=== PATIENT | female | born 1995 | race Caucasian/White ===

== ENCOUNTER 2016-06-04 02:48 | Emergency (ER) | payer SELFPAY ==
[~2016-06-04] VITALS: Ht 160 cm; Wt 50.0 kg
[2016-06-04 02:59] VITALS: Ht 160 cm; Wt 50.0 kg
[2016-06-04 03:22] LABS: URINE BLOOD (Dip) POC 1+ (NEGATIVE)
[2016-06-04] MEDS ORDERED: SOD CHLORIDE 0.9% 1,000 ML IV STA (03:23)
[2016-06-04 03:36] LABS: ADD SCAN DIFF NO
[2016-06-04 03:40] LABS: BASOPHILS % 0.1 % (0.0-2.0); EOSINOPHILS # 0.1 10^3/ul (0.0-0.5); EOSINOPHILS % 0.7 % (0.0-7.0); HEMATOCRIT 40.4 % (37.0-47.0); HEMOGLOBIN 12.4 g/dl (12.0-16.0); LYMPHOCYTES # 2.5 10^3/ul (0.8-2.9); LYMPHOCYTES % 30.3 % (15.0-51.0); MEAN CORPUSCULAR HEMOGLOBIN 25.4 pg (29.0-33.0); MEAN CORPUSCULAR HGB CONC 30.7 g/dl (32.0-37.0); MEAN CORPUSCULAR VOLUME 82.6 fl (82.0-101.0); MEAN PLATELET VOLUME 9.3 fl (7.4-10.4); MONOCYTE # 0.5 10^3/ul (0.3-0.9); MONOCYTES % 6.5 % (0.0-11.0); PLATELET COUNT 481 10^3/UL (140-415); RED BLOOD COUNT 4.89 10^6/ul (4.20-5.40); RED CELL DISTRIBUTION WIDTH 14.4 % (11.5-14.5); WHITE BLOOD COUNT 8.1 10^3/ul (4.8-10.8)
[2016-06-04 04:19] LABS: CHLORIDE 108 mmol/L (97-110); SODIUM 148 mmol/L (135-144)
[2016-06-04 04:20] LABS: POTASSIUM 3.7 mmol/L (3.5-5.1)
[2016-06-04 04:21] LABS: INR 0.98; PARTIAL THROMBOPLASTIN TIME 30.1 Sec (25.0-35.0)
[2016-06-04 04:22] LABS: ANION GAP 20 (8-16); CARBON DIOXIDE 24 mmol/L (21-31); CREATININE 0.47 mg/dl (0.44-1.00)
[2016-06-04 04:23] LABS: BLOOD UREA NITROGEN 6 mg/dl (7-20); CALCIUM 9.8 mg/dl (8.4-10.2); GLUCOSE 103 mg/dl (70-220); MAGNESIUM 2.2 mg/dl (1.7-2.5)
[2016-06-04 04:35] LABS: TROPONIN-I < 0.012 ng/ml (0.00-0.12)
--- NOTE | 2016-06-04 04:41 | ERD ---
ER Documentation Chief Complaint Date/Time DATE: 06/04/16 TIME: 04:39 Chief Complaint PT C/O SOB for 4 days. Pt reports hx of heart problem but unsure what HPI This is a 20-year-old female who presents to the emergency room for evaluation of shortness of breath for the past 4 days. The patient states that she has an unknown heart problem, and today she states that she drank 3 beers and came to the ER because she was having an elevation in her heart rate. The patient states that she does not follow with a product developer. She denies any illicit drug use and came to the ER for evaluation. She is denying any actual chest pain but does state that she feels palpitations. ROS All systems reviewed and are negative except as per history of present illness. Medications Home Meds No Active Prescriptions or Reported Meds Allergies Allergies: Coded Allergies: No Known Allergy (Unverified , 01/14/14) PMhx/Soc Medical and Surgical Hx: pt denies Surgical Hx History of Surgery: No Anesthesia Reaction: No Hx Neurological Disorder: No Hx Respiratory Disorders: No Hx Cardiac Disorders: Yes (ARRHYTHMIA) Hx Psychiatric Problems: No Hx Miscellaneous Medical Probl: No Hx Alcohol Use: No Hx Substance Use: No Hx Tobacco Use: No Smoking Status: Never smoker Physical Exam Vitals Vital Signs Date Time Temp Pulse Resp B/P Pulse Ox O2 Delivery O2 Flow Rate FiO2 06/04/16 03:20 98.7 105 24 102/67 98 Room Air 06/04/16 02:59 98.7 137 24 167/64 97 Physical Exam INITIAL VITAL SIGNS: Reviewed by me GENERAL: The patient is well developed and appropriate for usual state of health in no apparent distress, smells of alcohol HEENT: Pupils equal, round, and reactive to light. EOMI. There is no scleral icterus. NECK: C-spine is soft and supple, there is no meningismus. There is no cervical lymphadenopathy. LUNGS: Clear to auscultation bilaterally. There are no rales, wheezes or rhonchi. HEART: Tachycardic, no murmurs, clicks, rubs or gallops. ABDOMEN: Soft, non-tender, non-distended. There are bowel sounds in all four quadrants. No rebound or guarding. EXTREMITIES: There is no peripheral cyanosis or edema. No focal swelling or erythema. NEUROLOGICAL: The patient moves all four extremities with 5/5 strength. Cranial nerves II - XII are intact. Normal gait. Alert and oriented SKIN: There is no apparent rash or petechiae. HEME/LYMPHATIC: There is no evidence of excessive bruising or lymphedema. PSYCHIATRIC: The patient does not appear anxious or depressed. Result Diagram: 06/04/16 0330 06/04/16 0330 Results 24 hrs Laboratory Tests Test 06/04/16 03:22 06/04/16 03:30 Bedside Urine pH (LAB) 6.5 Bedside Urine Protein (LAB) Negative Bedside Urine Glucose (UA) Negative Bedside Urine Ketones (LAB) Negative Bedside Urine Blood 1+ Bedside Urine Nitrite (LAB) Negative Bedside Urine Leukocyte Esterase (L Negative White Blood Count 8.110^3/ul Red Blood Count 4.8910^6/ul Hemoglobin 12.4g/dl Hematocrit 40.4% Mean Corpuscular Volume 82.6fl Mean Corpuscular Hemoglobin 25.4pg Mean Corpuscular Hemoglobin Concent 30.7g/dl Red Cell Distribution Width 14.4% Platelet Count 38092^3/UL Mean Platelet Volume 9.3fl Neutrophils % 62.0% Lymphocytes % 30.3% Monocytes % 6.5% Eosinophils % 0.7% Basophils % 0.1% Nucleated Red Blood Cells % 0.0/100WBC Neutrophils # 5.010^3/ul Lymphocytes # 2.510^3/ul Monocytes # 0.510^3/ul Eosinophils # 0.110^3/ul Basophils # 0.010^3/ul Nucleated Red Blood Cells # 0.010^3/ul Prothrombin Time 13.0Sec Prothrombin Time Ratio 1.0 INR International Normalized Ratio 0.98 Activated Partial Thromboplast Time 30.1Sec Sodium Level 148mmol/L Potassium Level 3.7mmol/L Chloride Level 108mmol/L Carbon Dioxide Level 24mmol/L Anion Gap 20 Blood Urea Nitrogen 6mg/dl Creatinine 0.47mg/dl Glucose Level 103mg/dl Calcium Level 9.8mg/dl Magnesium Level 2.2mg/dl Troponin I < 0.012ng/ml Ethyl Alcohol Level 229.0mg/dl Current Medications Medications (Trade) Dose Ordered Sig/Alexandrea Route PRN Reason Start Time Stop Time Status Last Admin Dose Admin Sodium Chloride (NS) 1,000 ml @ 1,000 mls/hr Q1H STAT IV 06/04/16 03:23 06/04/16 04:22 DC 06/04/16 03:33 Procedures/MDM EKG: Rate/Rhythm: Sinus tachycardia QRS, ST, T-waves: [No changes consistent w/ acute ischemia] Impression: [No evidence of ischemia or arrhythmia] Chest X-ray 1V Interpreted by me: Soft Tissue: No acute abnormalities Bones: No acute abnormalities Mediastinum/Cardiac Silhouette/Lungs: [No acute abnormalities] This 20-year-old female presents to the ER for evaluation of increased heart rate. When I evaluated her she was tachycardic. She did smell of alcohol as well. She was hemodynamically stable, not hypoxic. Lab work was obtained which was normal except for alcohol level of 229. This patient was given 1 L of fluids, and when I reevaluated her her heart rate is 88 bpm. Advised the patient and the patient's family that her tachycardia secondary to alcohol use and anxiety. This patient will be discharged into the care of her parents at this time. Departure Diagnosis: Primary Impression: Shortness of breath Additional Impression: Alcohol abuse Condition: Stable MAUREEN GORDON DO Jun 04, 2016 04:41
[2016-06-04 04:45] LABS: BARBITURATES Negative (NEGATIVE); BENZODIAZEPINES Negative (NEGATIVE); CANNABINOIDS Negative (NEGATIVE)
[2016-06-04 04:52] VITALS: BP 103/72; PULSE 103; RESP 24; TEMP 98.7
--- NOTE | 2016-06-04 04:53 | RADRPT ---
PROCEDURE: Chest. CLINICAL INDICATION: Chest pain. TECHNIQUE: Single frontal view of the chest was obtained. COMPARISON: None. FINDINGS: The cardiac silhouette is within normal limits. The aortic arch is unremarkable. There is no focal consolidation, vascular congestion or pleural effusion. There is no pneumothorax. IMPRESSION: No evidence for active cardiopulmonary disease. .Ricardo Salcedo MD, MD Date Time Electronically viewed and signed by .Riacrdo Salcedo MD, on 06/04/2016 04:52 .T/
[2016-06-04 05:00] LABS: COCAINE Negative (NEGATIVE); OPIATES Negative (NEGATIVE)
== END 2016-06-04 04:52 | disposition home or self-care (01) ==
LOC: E/R 02:48
DX: R06.02 Shortness of breath (principal); F10.10 Alcohol abuse, uncomplicated
CPT/HCPCS: 71010; 80048; 80306; 80307; 81003; 83735; 84484; 85025; 85610; 85730; 93005; J7030; 36415

== ENCOUNTER 2018-07-22 13:13 | Emergency (ER) | payer MEDICAID ==
[~2018-07-22] VITALS: Wt 59.1 kg
[2018-07-22] MEDS ORDERED: KETOROLAC 30 MG INJ IM STA (15:30)
--- NOTE | 2018-07-22 15:52 | ERD ---
ER Documentation Chief Complaint Chief Complaint UPPER ABD PAIN AND EPIGASTRIC AREA FOR THE PAST WEEK. N/V. NO DIARRHEA HPI 22-year-old healthy female with no reported past medical surgical history who presents with 2-week complaint of epigastric abdominal pain. Describes dull pain that is a burning type pain to upper epigastrium. Has had several episodes of associated nausea and vomiting has been taking Pepcid which did not help much with her symptoms. Also with reported urinary frequency. She otherwise denies fever, chills, recent URI type illness, shortness of breath, dyspnea, vaginal bleeding or discharge. LMP 3 weeks ago. Not sexually active over the past 2 months. Has had issues with reflux in the past and approximately a year ago told she may have gastric ulcer. Had no studies done at the time and did not f ollow-up with specialist. ROS All systems reviewed and are negative except as per history of present illness. Medications Home Meds Active Scripts Omeprazole* (Omeprazole*) 20 Mg Capsule.dr, 20 MG PO BID, #20 Prov:ABIMAEL PADRON PA-C 07/22/18 Ondansetron (Ondansetron Odt) 4 Mg Tab.rapdis, 4 MG PO Q6H PRN for NAUSEA AND/OR VOMITING, #10 TAB Prov:ABIMAEL PADRON PA-C 07/22/18 Allergies Allergies: Coded Allergies: No Known Allergy (Unverified , 01/14/14) PMhx/Soc History of Surgery: No Anesthesia Reaction: No Hx Neurological Disorder: No Hx Respiratory Disorders: No Hx Cardiac Disorders: Yes (ARRHYTHMIA) Hx Psychiatric Problems: No Hx Miscellaneous Medical Probl: No Hx Alcohol Use: No Hx Substance Use: No Hx Tobacco Use: No Smoking Status: Never smoker FmHx Family History: No diabetes, No coronary disease, No other Physical Exam Vitals Vital Signs Date Temp Pulse Resp B/P (MAP) Pulse Ox O2 O2 Flow FiO2 Time Delivery Rate 07/22/18 97.5 85 18 144/80 99 13:16 (101) Physical Exam Const: No acute distress Head: Atraumatic Eyes: Normal Conjunctiva ENT: Normal External Ears, Nose and Mouth. Neck: Full range of motion. No meningismus. Resp: Clear to auscultation bilaterally Cardio: Regular rate and rhythm, no murmurs Abd: Soft, non tender, non distended. Normal bowel sounds Skin: No petechiae or rashes Back: No midline or flank tenderness Ext: No cyanosis, or edema Neur: Awake and alert Psych: Normal Mood and Affect Result Diagram: 07/22/18 1541 07/22/18 1541 Results 24 hrs Laboratory Tests Test 07/22/18 15:41 07/22/18 15:46 White Blood Count 7.0 10^3/ul Red Blood Count 4.76 10^6/ul Hemoglobin 12.8 g/dl Hematocrit 41.5 % Mean Corpuscular Volume 87.2 fl Mean Corpuscular Hemoglobin 26.9 pg Mean Corpuscular Hemoglobin Concent 30.8 g/dl Red Cell Distribution Width 14.7 % Platelet Count 400 10^3/UL Mean Platelet Volume 9.3 fl Immature Granulocytes % 0.300 % Neutrophils % 57.4 % Lymphocytes % 32.8 % Monocytes % 8.1 % Eosinophils % 1.3 % Basophils % 0.1 % Nucleated Red Blood Cells % 0.0 /100WBC Immature Granulocytes # 0.020 10^3/ul Neutrophils # 4.0 10^3/ul Lymphocytes # 2.3 10^3/ul Monocytes # 0.6 10^3/ul Eosinophils # 0.1 10^3/ul Basophils # 0.0 10^3/ul Nucleated Red Blood Cells # 0.0 10^3/ul Urine Color STRAW Urine Clarity CLEAR Urine pH 8.0 Urine Specific [place] 1.006 Urine Ketones NEGATIVE mg/dL Urine Nitrite NEGATIVE mg/dL Urine Bilirubin NEGATIVE mg/dL Urine Urobilinogen NEGATIVE mg/dL Urine Leukocyte Esterase TRACE Kuldip/ul Urine Microscopic RBC 0 /HPF Urine Microscopic WBC 2 /HPF Urine Squamous Epithelial Cells FEW /HPF Urine Hemoglobin NEGATIVE mg/dL Urine Glucose NEGATIVE mg/dL Urine Total Protein NEGATIVE mg/dl Sodium Level 142 mmol/L Potassium Level 4.0 mmol/L Chloride Level 101 mmol/L Carbon Dioxide Level 30 mmol/L Anion Gap 11 Blood Urea Nitrogen 10 mg/dl Creatinine 0.48 mg/dl Est Glomerular Filtrat Rate mL/min > 60 mL/min Glucose Level 93 mg/dl Calcium Level 10.2 mg/dl Total Bilirubin 0.5 mg/dl Direct Bilirubin 0.00 mg/dl Indirect Bilirubin 0.5 mg/dl Aspartate Amino Transf (AST/SGOT) 23 IU/L Alanine Aminotransferase (ALT/SGPT) 23 IU/L Alkaline Phosphatase 132 IU/L Total Protein 8.1 g/dl Albumin 4.8 g/dl Globulin 3.30 g/dl Albumin/Globulin Ratio 1.45 Lipase 234 U/L POC Beta HCG, Qualitative NEGATIVE Current Medications Medications Dose Sig/Alexandrea Start Time Status Last (Trade) Ordered Route PRN Stop Time Admin Dose Reason Admin Ketorolac 30 mg ONCE STAT 07/22/18 DC 07/22/18 Tromethamine IM 15:30 07/22/18 15:54 (Toradol) 15:32 Procedures/MDM 22-year-old female non- woman presenting with abdominal pain. Given patients test is negative, highly doubt ectopic . Considered causes of female-specific abdominal pain unrelated to (e.g., pelvic inflammatory disease with or without tubo-ovarian abscess, [id number], etc.). Also considered causes of abdominal pain that are not gender-specific (e.g., appendicitis, volvulus, small bowel obstruction, mesenteric adenitis, acute cholecystitis/choledocholithiasis and other biliary pathology, etc.). Patient well-appearing with normal vital signs. Laboratory testing and imaging here reviewed and normal. Patient given strict return precautions for worsening pain, inability to eat/drink, fevers (temperature over 100.4F), or other concerns. Patient instructed to follow up with their primary doctor and is agreeable; all questions were answered. Given prior history of GERD symptoms may be secondary to such. Will discharge with omeprazole and Zofran and have patient follow-up with PMD for continued man agement. ED course: Gallbladder ultrasound without acute finding, no finding in the right upper adriel drant as well UA unremarkable Labs alk phos 132 ALT and AST within normal limits DISPOSITION PLAN: We discussed follow up with the patient's primary care doctor within 24 to 48 hours. Patient counseled regarding my diagnostic impression and care plan. Prior to discharge all questions answered. Pt agrees with treatment plan and understands strict return precautions. Precautionary instructions provided including instructions to return to the ER if not improving or for any worsening or changing symptoms or concerns. Disclaimer: Inadvertent spelling and grammatical errors are likely due to EHR/ dictation software use and do not reflect on the overall quality of patient care. Also, please note that the electronic time recorded on this note does not necessarily reflect the actual time of the patient encounter. Departure Diagnosis: Primary Impression: Abdominal pain Condition: Stable Patient Instructions: Abdominal Pain Additional Instructions: Call your primary care doctor TOMORROW for an appointment during the next 2-3 days.See the doctor sooner or return here if your condition worsens before your appointment time. ABIMAEL PADRON PA-C Jul 22, 2018 15:52
[2018-07-22] MEDS ORDERED: ONDA4TAB14 PO (17:06)
[2018-07-22] MEDS ORDERED: OMEP20CA16 PO (17:06)
[2018-07-22 17:33] VITALS: BP 119/71; PULSE 98; RESP 18
== END 2018-07-22 17:34 | disposition home or self-care (01) ==
LOC: FTE 13:13
DX: R10.13 Epigastric pain (principal)
CPT/HCPCS: 76705; 80053; 81001; 81025; 83690; 85025; J1885; 36415; 96372

== ENCOUNTER 2018-09-05 17:02 | Emergency (ER) | payer MEDICAID ==
[~2018-09-05] VITALS: Ht 12.7 cm; Wt 62.4 kg
[~2018-09-05 17:02] MED LIST: OMEP20CA16 PO; ONDA4TAB14 PO
[2018-09-05 17:06] VITALS: Ht 12.7 cm; Wt 62.4 kg
[2018-09-05] MEDS ORDERED: LIDOCAINE/MYLANTA 40 ML BTL PO STA (17:35)
[2018-09-05] MEDS ORDERED: BELLADONNA/PHENOBARBITAL TAB PO STA (17:35)
[2018-09-05] MEDS ORDERED: FAMOTIDINE 20 MG TAB PO STA (17:35)
--- NOTE | 2018-09-05 17:48 | ERD ---
ER Documentation Chief Complaint Chief Complaint epigastric pain - hx of gastritis HPI 22-year-old female with history of epigastric that is here resents with complaint of continued epigastric pain for the past year that has not resolved despite taking Pepcid and Mylanta. States she was diagnosed with gastritis and has never had an endoscopy. Patient states that the pain is located in the epigastric region sometimes radiates to the upper left quadrant. States that the pain is worse after she eats. States that she says occasional dysuria. States she sometimes has vomiting as well. Patient denies any fevers. Patient denies any hematuria, flank pain, back pain, chest pain. ROS All systems reviewed and are negative except as per history of present illness. Medications Home Meds Active Scripts Magaldrate/Simethicone* (Mylanta*) 355 Ml Susp, 30 ML PO QID PRN for GAS TROINTESTINAL UPSET, #1 BOTTLE Prov:LUISA ERVIN 09/05/18 Famotidine* (Pepcid*) 20 Mg Tablet, 40 MG PO BID for 30 Days, TAB Prov:LUISA ERVIN 09/05/18 Omeprazole* (Omeprazole*) 20 Mg Capsule.dr, 20 MG PO BID, #20 Prov:ABIMAEL PADRON PA-C 07/22/18 Ondansetron (Ondansetron Odt) 4 Mg Tab.rapdis, 4 MG PO Q6H PRN for NAUSEA AND/OR VOMITING, #10 TAB Prov:ABIMAEL PADRON PA-C 07/22/18 Allergies Allergies: Coded Allergies: No Known Allergy (Unverified , 01/14/14) PMhx/Soc History of Surgery: No Anesthesia Reaction: No Hx Neurological Disorder: No Hx Respiratory Disorders: No Hx Cardiac Disorders: Yes (ARRHYTHMIA) Hx Psychiatric Problems: No Hx Miscellaneous Medical Probl: No Hx Alcohol Use: No Hx Substance Use: No Hx Tobacco Use: No FmHx Family History: No diabetes, No coronary disease, No other Physical Exam Vitals Vital Signs Date Temp Pulse Resp B/P (MAP) Pulse Ox O2 O2 Flow FiO2 Time Delivery Rate 09/05/18 98.7 88 20 135/75 98 Room Air 19:08 (95) 09/05/18 98.8 108 20 146/84 98 17:06 (104) Physical Exam Const: No acute distress Head: Atraumatic Eyes: Normal Conjunctiva ENT: Normal External Ears, Nose and Mouth. Neck: Full range of motion. No meningismus. Resp: Clear to auscultation bilaterally Cardio: Regular rate and rhythm, no murmurs Abd: Mild tenderness to palpation in the epigastric area without guarding or rigidity. Otherwise soft, non tender, non distended. Normal bowel sounds Skin: No petechiae or rashes Back: No midline or flank tenderness Ext: No cyanosis, or edema Neur: Awake and alert Psych: Normal Mood and Affect Result Diagram: 09/05/18181509/05/181815 Results 24 hrs Laboratory Tests Test 09/05/18 18:16 09/05/18 18:24 White Blood Count 11.6 10^3/ul Red Blood Count 4.61 10^6/ul Hemoglobin 12.4 g/dl Hematocrit 40.8 % Mean Corpuscular Volume 88.5 fl Mean Corpuscular Hemoglobin 26.9 pg Mean Corpuscular Hemoglobin Concent 30.4 g/dl Red Cell Distribution Width 14.5 % Platelet Count 346 10^3/UL Mean Platelet Volume 8.7 fl Immature Granulocytes % 0.300 % Neutrophils % 71.4 % Lymphocytes % 17.8 % Monocytes % 8.8 % Eosinophils % 1.4 % Basophils % 0.3 % Nucleated Red Blood Cells % 0.0 /100WBC Immature Granulocytes # 0.030 10^3/ul Neutrophils # 8.3 10^3/ul Lymphocytes # 2.1 10^3/ul Monocytes # 1.0 10^3/ul Eosinophils # 0.2 10^3/ul Basophils # 0.0 10^3/ul Nucleated Red Blood Cells # 0.0 10^3/ul Urine Color YELLOW Urine Clarity CLOUDY Urine pH 9.0 Urine Specific [place] 1.021 Urine Ketones NEGATIVE mg/dL Urine Nitrite NEGATIVE mg/dL Urine Bilirubin NEGATIVE mg/dL Urine Urobilinogen NEGATIVE mg/dL Urine Leukocyte Esterase NEGATIVE Kuldip/ul Urine Microscopic RBC 5 /HPF Urine Microscopic WBC 4 /HPF Urine Squamous Epithelial Cells FEW /HPF Urine Bacteria FEW /HPF Urine Mucus FEW /HPF Urine Hemoglobin NEGATIVE mg/dL Urine Glucose NEGATIVE mg/dL Urine Total Protein NEGATIVE mg/dl Sodium Level 142 mmol/L Potassium Level 3.6 mmol/L Chloride Level 101 mmol/L Carbon Dioxide Level 31 mmol/L Anion Gap 10 Blood Urea Nitrogen 8 mg/dl Creatinine 0.49 mg/dl Est Glomerular Filtrat Rate mL/min > 60 mL/min Glucose Level 91 mg/dl Calcium Level 10.3 mg/dl Total Bilirubin 0.3 mg/dl Direct Bilirubin 0.00 mg/dl Indirect Bilirubin 0.3 mg/dl Aspartate Amino Transf (AST/SGOT) 20 IU/L Alanine Aminotransferase (ALT/SGPT) 17 IU/L Alkaline Phosphatase 108 IU/L Total Protein 8.2 g/dl Albumin 4.7 g/dl Globulin 3.50 g/dl Albumin/Globulin Ratio 1.34 Lipase 75 U/L POC Beta HCG, Qualitative NEGATIVE Current Medications Medications Dose Sig/Alexandrea Start Time Status Last (Trade) Ordered Route PRN Stop Time Admin Dose Reason Admin Famotidine 20 mg ONCE STAT 09/05/18 DC 09/05/18 (Pepcid) PO 17:35 18:20 09/05/18 17:38 40 ml ONCE STAT 09/05/18 DC 09/05/18 Miscellaneous PO 17:35 18:18 Medication 09/05/18 17:38 (Gi Cocktail (2)) [place]/ 2 tab ONCE STAT 09/05/18 DC 09/05/18 Phenobarbital PO 17:35 18:24 () 09/05/18 17:38 Procedures/MDM DIAGNOSTIC IMAGING REPORT Patient: STEPHEN JOLLY : 1995 Age: 22 Sex: F MR #: [id number] DOS: 09/05/18 1805 Ordering MD: LUISA ERVIN Location: [facility] Room/Bed: PROCEDURE: US Abdomen. CLINICAL INDICATION: abdominal pain TECHNIQUE: Multiple real-time images were acquired of the patient's right upper quadrant abdomen and retroperitoneum utilizing a high resolution trans ducer. COMPARISON: 07/22/18 FINDINGS: The liver demonstrates increased echogenicity. There is mild sparing adjacent to the gallbladder. The liver is normal in size and no focal solid lesions are seen. The liver measures 13.5 cm in length. The portal vein is patent with normal direction of flow. No intrahepatic biliary dilatation is seen. No gallstones are identified within the gallbladder. There is no pericholecystic fluid or gallbladder wall thickening. The common bile duct measures 2 mm in maximal dimension. The pancreas appears hypoechoic. The pancreatic duct is slightly prominent measuring 2 mm. No free fluid is identified. The right kidney is normal in size, and demonstrate normal echogenicity and cortical thickness. The right kidney measures 10.2 cm in long dimension. There is no evidence of hydronephrosis. There are no kidney stones. RPTAT: AA IMPRESSION: Fatty infiltration of the liver. Hypoechoic appearance of the pancreas with a slightly prominent pancreatic head. No evidence of gallstones. .Santy Saleh MD, MD Date Time Electronically viewed and signed by .Santy Saleh MD, on 09/05/2018 18:14 .S/ CC: LUISA ERVIN [id number] MDM: Patient's presentation is chronic without any acute characteristics, however given the location of the pain as well as patient's complaint of pain after eating, there is concern for possible cholelithiasis, therefore ultrasound was ordered. Results within normal limits. Patient was advised that she may have an ulcer or possibly just gastritis but nevertheless needs to be followed up on outpatient basis and she should try and get scheduled for an endoscopy. Patient understood and agreed to do this. Patient given GI cocktail and pepcid in ER and symptoms were resolved. Patient's hemoglobin was within normal limits. I have low suspicion for acute coronary syndrome, AAA, mesenteric ischemia, lower lobe pneumonia, DKA, bowel perforation, cholecystitis, cho ledocholithiasis, ascending cholangitis, hepatic abscess, pancreatitis, PUD, splenic rupture, diverticulitis, pyelonephritis, nephrolithiasis, appendicitis, [, ectopic , PID, ovarian torsion or tubo-ovarian abscess]. At this time, patient is stable for discharge and outpatient management. I have instructed the patient to follow-up with his/her primary care physician in 1-2 days. I have discussed with the patient the possibility of needing to see a specialist for further workup and imaging studies if symptoms persist. I have instructed the patient to promptly return to the ER for any new or worsening symptoms including but not limited to increased pain, fever, nausea, vomiting, weakness or LOC. The patient and/or family expressed understanding of and agreement with this plan. All questions were answered. Home care instructions were provided. DISCLAIMER: Inadvertent spelling and grammatical errors are likely due to EHR/dictation software use and do not reflect on the overall quality of patient care. Also, please note that the electronic time recorded on this note does not necessarily reflect the actual time of the patient encounter. Departure Diagnosis: Primary Impression: Gastritis Condition: Stable LUISA ERVIN Sep 05, 2018 17:48
[2018-09-05] MEDS ORDERED: FAMO-96 PO (18:53)
[2018-09-05] MEDS ORDERED: MAG-19 PO (18:53)
[2018-09-05 19:08] VITALS: BP 135/75; PULSE 88; RESP 20
== END 2018-09-05 19:08 | disposition home or self-care (01) ==
LOC: FTE 17:02
DX: K29.70 Gastritis, unspecified, without bleeding (principal)
CPT/HCPCS: 36415; 76705; 80053; 81001; 81025; 83690; 85025; Z7502; Z7610

== ENCOUNTER 2018-10-26 13:57 | Emergency (ER) | payer SELFPAY ==
[~2018-10-26] VITALS: Ht 160 cm; Wt 59.0 kg
[~2018-10-26 13:57] MED LIST changes: +ACET500C5 PO; +FAMO-96 PO; +MAG-19 PO; +ONDA8TAB14 PO; +PANT40TA3 PO
[2018-10-26 14:01] VITALS: BP 131/74; PULSE 91; RESP 18; Ht 160 cm; Wt 59.0 kg
[2018-10-26] MEDS ORDERED: FAMOTIDINE 20 MG INJ IV STA (14:49)
[2018-10-26] MEDS ORDERED: morphine 2 MG INJ IV STA (14:49)
[2018-10-26] MEDS ORDERED: ONDANSETRON 4 MG INJ IV STA (14:49)
== END 2018-10-26 16:12 | disposition home or self-care (01) ==
LOC: FTE 13:57
DX: R10.13 Epigastric pain (principal); R11.10 Vomiting, unspecified
CPT/HCPCS: 36415; 76705; 80053; 81001; 81025; 83690; 85025; 96374; 96375; 99285; J2270; J2405